=== PATIENT | male | born 1980 | race Two or more races ===

== ENCOUNTER 2024-12-10 17:46 | Emergency (ER) | payer OTHER ==
[~2024-12-10] VITALS: Ht 175.3 cm; Wt 98.9 kg
[2024-12-10] MEDS ORDERED: EPINEPHRINE (1:1000) 1 MG/ML AMPUL ONE (17:54)
[2024-12-10] MEDS ORDERED: diphenhydrAMINE HCL 50 MG/ML VIAL ONE (17:55)
[2024-12-10] MEDS ORDERED: methylPREDNISolone SOD SUCC 125 MG/2ML VIAL ONE (17:56)
[2024-12-10] MEDS: IV NS 0.9% 1,000 ML BAG IV ONE (18:00)
[2024-12-10] MEDS: EPINEPHRINE (1:1000) 1 MG/ML AMPUL IM STA (18:00)
[2024-12-10] MEDS: methylPREDNISolone SOD SUCC 125 MG/2ML VIAL IV ONE (18:00)
[2024-12-10] MEDS: diphenhydrAMINE HCL 50 MG/ML VIAL IV ONE (18:00)
[2024-12-10 18:30] VITALS: TEMP 98.3
[2024-12-10] MEDS ORDERED: EPIN0.3P3 IM (20:25)
[2024-12-10] MEDS ORDERED: DIPH25TA62 PO (20:25)
[2024-12-10] MEDS ORDERED: PRED20TA PO (20:25)
[2024-12-10 21:48] VITALS: BP 142/84; O2SAT 97
== END 2024-12-10 21:48 | disposition home or self-care (01) ==
LOC: ER 17:50
DX: T78.2XXA Anaphylactic shock, unspecified, initial encounter (principal); Z79.52 Long term (current) use of systemic steroids; X58.XXXA Exposure to other specified factors, initial encounter; Y93.89 Activity, other specified; Y92.89 Other specified places as the place of occurrence of the external cause; Y99.8 Other external cause status
CPT/HCPCS: 99284; 96374; 96361; 96375; 96372; J2919; J1200; J0171; J7030 ×2